=== PATIENT | male | born 2000 | race Hispanic/Latino ===

== ENCOUNTER 2020-09-24 21:49 | Emergency (ER) | payer MEDICAID, SELFPAY ==
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
[2020-09-24] MEDS ORDERED: KETOROLAC 30 MG/ML INJ ONE (23:03)
[2020-09-24] MEDS ORDERED: TETANUS & DIPHTHERIA TOX,ADULT 0.5 ML VIAL ONE (23:03)
== END 2020-09-24 22:58 | disposition home or self-care (01) ==
LOC: ER 21:49
DX: T24.231A Burn of second degree of right lower leg, initial encounter (principal); T31.0 Burns involving less than 10% of body surface; X19.XXXA Contact with other heat and hot substances, initial encounter; Y93.89 Activity, other specified; Y92.9 Unspecified place or not applicable; F17.210 Nicotine dependence, cigarettes, uncomplicated; Z88.5 Allergy status to narcotic agent; Z91.013 Allergy to seafood; Z91.048 Other nonmedicinal substance allergy status
CPT/HCPCS: 90471; 90714; 96372; 99284

== ENCOUNTER 2021-08-16 12:17 | Emergency (ER) | payer SELFPAY ==
[2021-08-16] MEDS ORDERED: TETRACAINE HCL 0.5% 4ML OPTH ONE (13:24)
[2021-08-16] MEDS ORDERED: FLUORESCEIN SODIUM 1 MG/WRAP ONE (13:24)
[2021-08-16] MEDS ORDERED: DIPHENHYDRAMINE 50 MG/ML VIAL ONE (13:46)
[2021-08-16] MEDS ORDERED: dexAMETHasone 10 MG/ML VIAL ONE (13:46)
[2021-08-16] MEDS ORDERED: FAMOTIDINE 20 MG/2 ML VIAL IV ONE (13:46)
--- NOTE | 2021-08-16 13:53 | RAD REPORT ---
EXAM DESCRIPTION: CT - CTFBWCON CLINICAL HISTORY: left sided facial swelling Pain and swelling. COMPARISON: HEAD BRAIN W O CONTRAST dated 03/03/2013; HEAD BRAIN W O CONTRAST dated 01/07/2013 TECHNIQUE: Axial 2 mm thick images of the face were obtained with sagittal and coronal reconstructio n images. All CT scans are performed using dose optimization technique as appropriate and may include automated exposure control or mA/KV adjustment according to patient size. FINDINGS: No acute facial bone fracture is seen.The mandible is intact. Mild left-sided proptosis is seen. The left globe demonstrates a normal volume.Mild preseptal swellin g is present on the left.The paranasal sinuses and mastoids are clear. A radiopaque foreign body is n ot identified in the region of the left orbit. IMPRESSION: Negative for facial bone fracture. Left sided proptosis is seen with preseptal soft tissue swelling. The left globe is intact. No radiop aque foreign body is seen. Please note that wood can be difficult to visualize radiographically.
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
[2021-08-16 15:36] VITALS: TEMP 97.9; O2SAT 100
[2021-08-16 15:39] VITALS: BP 121/89
[2021-08-16] MEDS ORDERED: CEFTRIAXONE 1000 MG/VIAL ONE (15:46)
== END 2021-08-16 15:30 | disposition home or self-care (01) ==
LOC: ER 12:17
DX: L03.213 Periorbital cellulitis (principal); H00.016 Hordeolum externum left eye, unspecified eyelid; Z88.5 Allergy status to narcotic agent; Z91.013 Allergy to seafood; Z91.048 Other nonmedicinal substance allergy status
CPT/HCPCS: 70487; 76377; 96374; 96375; 99284; J1100; J1200; Q9967

== ENCOUNTER 2022-07-09 07:55 | Emergency (ER) | payer SELFPAY ==
[2022-07-09] MEDS ORDERED: ALBUTEROL 2.5 MG/3 ML NEB SOL ONE (08:20)
--- NOTE | 2022-07-09 08:30 | RAD REPORT ---
EXAM DESCRIPTION: Margarette Single View07/09/2022 8:23 am CLINICAL HISTORY: cough COMPARISON: 2012 FINDINGS: The lungs appear clear of acute infiltrate. The heart is normal size IMPRESSION: No acute abnormalities displayed
--- NOTE | 2022-07-09 08:37 | EDPHYS ---
Physician Documentation [facility] Name: Demetrius Thorne Age: 21 yrs Sex: Male : 2000 Arrival Date: 07/09/2022 Time: 07:58 Bed 12 Private MD: ED Physician Antonio Garcia HPI: 07/09 08:05 This 21 yrs old Male presents to ER via Ambulatory with complaints of jh7 Medication Refill. 08:05 The patient presents to the emergency department requesting refill(s) for: Albuterol. jh7 The patient chronically suffers from Asthma. 21-year-old male presents with productive cough with shortness of breath x3 days. He declines COVID testing, but would like a refill of his albuterol inhaler. Also reports that he fell and hit his left anterior chest last week which has caused some pain. Denies fever, body aches, or any other symptoms.. Historical: - Allergies: 08:02 Demerol; kl 08:02 Iodine; kl 08:02 SHELLFISH; kl - Home Meds: 08:02 albuterol sulfate 2.5 mg /3 mL (0.083 %) Inhl nebu 3 mL 3 times per day [Active]; kl - PMHx: 08:02 Asthma; kl - PSHx: 08:02 Appendectomy; Tonsillectomy; kl - Immunization history:: Client reports having NOT received the Covid vaccine. - Social history:: Smoking status: Patient reports the use of cigarette tobacco products, denies chronic smoking, but will smoke occasionally. ROS: 08:05 Constitutional: Negative for fever, chills, and weight loss, Eyes: Negative for injury, jh7 pain, redness, and discharge, ENT: Negative for injury, pain, and discharge, Neck: Negative for injury, pain, and swelling, Cardiovascular: Negative for chest pain, palpitations, and edema, Abdomen/GI: Negative for abdominal pain, nausea, vomiting, diarrhea, and constipation, Back: Negative for injury and pain, MS/Extremity: Negative for injury and deformity, Skin: Negative for injury, rash, and discoloration, Neuro: Negative for headache, weakness, numbness, tingling, and seizure. 08:05 Respiratory: Positive for cough, shortness of breath, Negative for wheezing. 08:05 All other systems are negative. Exam: 08:05 Constitutional: This is a well developed, well nourished patient who is awake, alert, jh7 and in no acute distress. Head/Face: Normocephalic, atraumatic. ENT: Nares patent. No nasal discharge, no septal abnormalities noted. Oropharynx with no redness, swelling, or masses, exudates, or evidence of obstruction, uvula midline. Mucous membranes moist. Cardiovascular: Regular rate and rhythm with a normal S1 and S2. No gallops, murmurs, or rubs. Normal PMI, no JVD. No pulse deficits. Respiratory: Lungs have equal breath sounds bilaterally, clear to auscultation and percussion. No rales, rhonchi or wheezes noted. No increased work of breathing, no retractions or nasal flaring. Abdomen/GI: Soft, non-tender, with normal bowel sounds. No distension or tympany. No guarding or rebound. No evidence of tenderness throughout. Back: No spinal tenderness. No costovertebral tenderness. Full range of motion. Skin: Warm, dry with normal turgor. Normal color with no rashes, no lesions, and no evidence of cellulitis. MS/ Extremity: Pulses equal, no cyanosis. Neurovascular intact. Full, normal range of motion. Neuro: Awake and alert, GCS 15, oriented to person, place, time, and situation. Motor strength 5/5 in all extremities. Sensory grossly intact. Normal gait. Vital Signs: 07:59 BP 136 / 91; Pulse 81; Resp 18; Temp 98.1; Pulse Ox 100% ; Weight 90.72 kg; Height 5 kl ft. 4 in. (162.56 cm); Pain 0/10; 07:59 Body Mass Index 34.33 (90.72 kg, 162.56 cm) kl MDM: 08:06 Patient medically screened. [facility] 08:44 Data reviewed: vital signs, nurses notes, radiologic studies, plain films. Data [facility] interpreted: Pulse oximetry: is 100 %. Interpretation: normal. Counseling: I had a detailed discussion with the patient and/or guardian regarding: the historical points, exam findings, and any diagnostic results supporting the discharge/admit diagnosis, to return to the emergency department if symptoms worsen or persist or if there are any questions or concerns that arise at home. Response to treatment: the patient's symptoms have markedly improved after treatment. 07/09 08:09 Order name: XRAY CXR (1 view); Complete Time: 08:36 [facility] Administered Medications: 08:16 Drug: Albuterol 2.5 mg Route: Inhalation; jl7 08:42 Follow up: Response: No adverse reaction 7 Disposition: 09:45 Co-signature as Attending Physician, nAtonio Garcia MD I agree with the assessment and kdr plan of care. Disposition Summary: 07/09/22 08:37 Discharge Ordered Location: Home [facility] Problem: chronic [facility] Symptoms: have improved [facility] Condition: Stable [facility] Diagnosis - Unspecified asthma, uncomplicated jh7 Followup: [facility] - With: Private Physician - When: 2 - 3 days - Reason: Recheck today's complaints Discharge Instructions: - Discharge Summary Sheet [facility] - Asthma, Adult [facility] - Asthma Attack [facility] Forms: - Work release form eb - Medication Reconciliation Form [facility] - Thank You Letter [facility] Prescriptions: - ProAir HFA 90 mcg/actuation Inhalation HFA aerosol inhaler - inhale 2 puff by INHALATION route every 4-6 hours As needed; 1 Inhaler; [facility] Refills: 0, Product Selection Permitted - Medrol (Cornelio) 4 mg Oral Tablets, Dose Pack - take 1 tablet by ORAL route as directed - follow package instructions; 1 [facility] packet; Refills: 0, Product Selection Permitted Signatures: Dispatcher [employer] Brandy Restrepo RN RN kl Rittger, Kevin, MD MD kdr Leal, Jahala, RN RN jl7 Gilma Emerson FNP FNP Teresa Aguilar RN [facility]
--- NOTE | 2022-07-09 08:37 | ER ---
Nurse's Notes [facility] Name: Demetrius Thorne Age: 21 yrs Sex: Male : 2000 Arrival Date: 07/09/2022 Time: 07:58 Bed 12 Private MD: Diagnosis: Unspecified asthma, uncomplicated Presentation: 07/09 07:59 Chief complaint: Patient states: Had asthma attack this morning and didn't have kl anything in his inhaler. Coughing up light green sputum x 3 days. Coronavirus screen: Vaccine status: Patient reports being unvaccinated. Client denies travel out of the [place] in the last 14 days. At this time, the client does not indicate any symptoms associated with coronavirus-19. Ebola Screen: No symptoms or risks identified at this time. Initial Sepsis Screen: Does the patient meet any 2 criteria? No. Patient's initial sepsis screen is negative. Does the patient have a suspected source of infection? No. Patient's initial sepsis screen is negative. Risk Assessment: Do you want to hurt yourself or someone else? Patient reports no desire to harm self or others. Onset of symptoms was 2021. 07:59 Method Of Arrival: Ambulatory kl 07:59 Acuity: TYREE 4 kl 08:04 Note [employer] in triage to assess. kl Triage Assessment: 08:02 General: Appears in no apparent distress. Behavior is calm, cooperative, appropriate kl for age. Pain: Denies pain. Historical: - Allergies: 08:02 Demerol; kl 08:02 Iodine; kl 08:02 SHELLFISH; kl - Home Meds: 08:02 albuterol sulfate 2.5 mg /3 mL (0.083 %) Inhl nebu 3 mL 3 times per day [Active]; kl - PMHx: 08:02 Asthma; kl - PSHx: 08:02 Appendectomy; Tonsillectomy; kl - Immunization history:: Client reports having NOT received the Covid vaccine. - Social history:: Smoking status: Patient reports the use of cigarette tobacco products, denies chronic smoking, but will smoke occasionally. Screenin:16 Abuse screen: Denies threats or abuse. Denies injuries from another. Nutritional jl7 screening: No deficits noted. Tuberculosis screening: No symptoms or risk factors identified. Fall Risk None identified. Assessment: 08:16 General: Appears in no apparent distress. uncomfortable, Behavior is calm, cooperative, jl7 appropriate for age. Pain: Denies pain. Neuro: Level of Consciousness is awake, alert, obeys commands, Oriented to person, place, time, situation. Cardiovascular: Patient's skin is warm and dry. Respiratory: Airway is patent Respiratory effort is even, unlabored, Respiratory pattern is regular, symmetrical, Derm: Skin is pink, warm \T\ dry. Musculoskeletal: Swelling absent Tenderness present in left flank. Vital Signs: 07:59 BP 136 / 91; Pulse 81; Resp 18; Temp 98.1; Pulse Ox 100% ; Weight 90.72 kg; Height 5 kl ft. 4 in. (162.56 cm); Pain 0/10; 07:59 Body Mass Index 34.33 (90.72 kg, 162.56 cm) ED Course: 07:58 Patient arrived in ED. mr 08:02 Triage completed. 08:02 Gilma Emerson FNP [facility] 08:02 Antonio Garcia MD is Attending Physician. [facility] 08:02 Arm band placed on right wrist. Patient placed in an exam room, Patient notified of wait time. 08:15 Francis Carreon, BURTON is Primary Nurse. [facility] 08:16 Patient has correct armband on for positive identification. Bed in low position. Call [facility] light in reach. Side rails up X 1. 08:25 XRAY CXR (1 view) In Process Unspecified. EDMS 08:35 No apparent distress. Resting quietly. Awaiting for x-ray. [facility] 08:41 No provider procedures requiring assistance completed. Patient did not have IV access bm7 during this emergency room visit. Administered Medications: 08:16 Drug: Albuterol 2.5 mg Route: Inhalation; 7 08:42 Follow up: Response: No adverse reaction bm7 Medication: 08:16 VIS not applicable for this client. jl7 Outcome: 08:37 Discharge ordered by . 7 08:41 Discharged to home ambulatory, with family. bm7 08:41 Condition: good 08:41 Discharge instructions given to patient, family, Instructed on discharge instructions, follow up and referral plans. medication usage, Demonstrated understanding of instructions, follow-up care, medications, Prescriptions given X 1. 08:42 Patient left the ED. bm7 Signatures: Dispatcher [employer] EDMS Brandy Masterson, RN [facility] m[facility] Francis Carreon, RN RN dot7 Teresa Braga, BURTON RN bm7 Gilma Emerson, PLASTICS SPREADING MACHINE OPERATOR PLASTICS SPREADING MACHINE OPERATOR jh7
[2022-07-09 08:55] VITALS: BP 136/91; TEMP 98.1; O2SAT 100
== END 2022-07-09 08:42 | disposition home or self-care (01) ==
LOC: ER 07:55
DX: J45.909 Unspecified asthma, uncomplicated (principal); Z76.0 Encounter for issue of repeat prescription; F17.210 Nicotine dependence, cigarettes, uncomplicated; Z88.5 Allergy status to narcotic agent; Z91.013 Allergy to seafood; Z91.048 Other nonmedicinal substance allergy status
CPT/HCPCS: 71045; 99284

== ENCOUNTER 2022-08-19 13:14 | Emergency (ER) | payer SELFPAY ==
[2022-08-19] MEDS ORDERED: HYDROCODONE/APAP 5/325 MG TAB ONE (13:45)
--- NOTE | 2022-08-19 15:40 | RAD REPORT ---
EXAM DESCRIPTION: RAD - Hand Left 3 View - 08/19/2022 3:17 pm CLINICAL HISTORY: swelling, trauma COMPARISON: No comparisons FINDINGS/IMPRESSION: No acute fracture. No malalignment. No significant focal degenerative changes.
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
[2022-08-19 17:00] VITALS: BP 136/93; TEMP 98.2; O2SAT 99
== END 2022-08-19 16:46 | disposition home or self-care (01) ==
LOC: ER 13:14
DX: S60.222A Contusion of left hand, initial encounter (principal); F17.210 Nicotine dependence, cigarettes, uncomplicated; Z88.5 Allergy status to narcotic agent; Z91.013 Allergy to seafood; Z91.048 Other nonmedicinal substance allergy status
CPT/HCPCS: 99283